=== PATIENT | female | born 1970 | race Caucasian/White ===

== ENCOUNTER 2016-09-21 13:39 | Emergency (ER) | payer MEDICAID ==
[2016-02-10 10:31] VITALS: BMI 18.1
[~2016-09-21 13:39] MED LIST: ADDERALL 30 MG30 MG PO; BAYER CHEWABLE81 MG PO; CALCIUM 600 +1 EAC3 PO; EFFEXOR XR150 MG PO; EPIPEN0.3 MG/0.3 IM; HYDROCODON-ACE1 EAC7 PO; HYDROCODONE-APA1 TAB PO; HYDROXYZINE HCL50 MG PO; LAMICTAL100 MG PO; LYRICA75 MG; MIRAPEX0.5 MG PO; MULTI-DAY VITAM1 TAB PO; PEPCID AC20 MG; PERCOCET 7.5/321 TAB PO; POTASSIUM99 M1 PO; PRILOSEC20 MG PO; REGLAN10 MG; RELPAX40 MG PO; RESTORIL15 MG PO; SALINE FLUSH10 ML IV; TOPAMAX100 MG PO; VALIUM10 MG PO; ZANAFLEX4 MG PO; ZANTAC300 MG PO; ZYPREXA15 MG PO; ZYPREXA5 MG PO
== END 2016-09-21 15:11 | disposition home or self-care (01) ==
LOC: D.ER 13:39
DX: M25.551 Pain in right hip (principal); F31.89 Other bipolar disorder; F17.200 Nicotine dependence, unspecified, uncomplicated

== ENCOUNTER 2017-02-14 10:47 | Emergency (ER) | payer MEDICAID ==
[2016-02-10 10:31] VITALS: BMI 18.1
== END 2017-02-14 12:46 | disposition home or self-care (01) ==
LOC: D.ER 10:47
DX: M25.552 Pain in left hip (principal); F17.200 Nicotine dependence, unspecified, uncomplicated